=== PATIENT | male | born 1995 | race Caucasian/White ===

== ENCOUNTER 2018-09-04 00:45 | Emergency (ER) | payer MEDICAID ==
[2018-09-04] MEDS ORDERED: LIDOCAINE 1%/EPI (MDV) 50 ML INJ INJ (02:00)
[2018-09-04] MEDS: ACETAMINOPHEN 325 MG TAB PO (02:13)
[2018-09-04] MEDS: LIDOCAINE 1%/EPI (1:100,000) (MDV) 20 ML INJ (02:30)
== END 2018-09-04 04:20 | disposition home or self-care (01) ==
LOC: FTE 00:45
DX: S01.511A Laceration without foreign body of lip, initial encounter (principal); S01.112A Laceration without foreign body of left eyelid and periocular area, initial encounter; S06.0X0A Concussion without loss of consciousness, initial encounter; Y08.89XA Assault by other specified means, initial encounter
CPT/HCPCS: 12013; 70450; 72072; 99284-25